=== PATIENT | female | born 1985 | race Caucasian/White ===

== ENCOUNTER 2023-03-06 06:11 | Day surgery (SDC) | payer OTHER ==
[2023-03-02 09:10] LABS: Absolute Lymphocytes (CBC) 2.1 K/uL (0.7-4.9); Hematocrit 41.4 % (36.0-45.0); Lymphocytes % 32.8 % (15.3-44.8); MCV 87.5 fL (80-100); Platelets 334 thou/uL (152-406); RBC Red Blood Cell Count 4.74 M/uL (3.86-4.86)
[2023-03-02 09:29] LABS: Albumin 3.5 g/dL (3.4-5.0); Bilirubin Direct 0.1 mg/dL (0-0.2); Bilirubin Indirect, Calculated 0.5 mg/dL (0.2-0.8); Bilirubin Total 0.6 mg/dL (0.2-1.0); Potassium 3.6 mEq/L (3.5-5.1); Protein, Total 7.3 g/dL (6.4-8.2)
--- NOTE | 2023-03-02 18:05 | EKG ---
Test Date: 2023-03-02 Test Time: 08:08:27 Ticket Printer And Tagger: NUPUR MEASUREMENT RESULTS: Intervals: Rate: 91 VT: 150 QRSD: 86 QT: 354 QTc: 435 [place]: P: 68 VT: 150 QRS: 62 T: 63 INTERPRETIVE STATEMENTS: Normal sinus rhythm Normal ECG No previous ECG available for comparison Electronically Signed On 03-02-23 18:04:41 CDT by Lasha Plascencia
[2023-03-06] MEDS: Ringers Lactate 1,000 ML IV ONE (06:30)
[2023-03-06] MEDS ORDERED: CEFOXITIN SODIUM 1 GM/VIAL ONE (06:42)
[2023-03-06] MEDS ORDERED: HYDROMORPHONE HCL 2 MG/ML inj ONE (07:38)
[2023-03-06] MEDS ORDERED: SUGAMMADEX SODIUM 200 MG/2 ML VIAL IV ONE (07:38)
[2023-03-06] MEDS ORDERED: MIDAZOLAM HCL 2 MG/2 ML INJ ONE (07:40)
[2023-03-06] MEDS ORDERED: FENTANYL CITR 100 MCG/2 ML ONE (07:40)
[2023-03-06] MEDS ORDERED: ROCURONIUM 50 MG/5 ML VIAL IV ONE (07:40)
[2023-03-06] MEDS ORDERED: propofoL 200 MG/20 ML VIAL IV ONE (07:40)
[2023-03-06] MEDS ORDERED: LIDOCAINE 2% MPF 5 ML VIAL ONE (07:40)
[2023-03-06] MEDS ORDERED: ONDANSETRON 4 MG/2 ML VIAL ONE ×2 (08:04→09:28)
[2023-03-06] MEDS ORDERED: dexAMETHasone 4 MG/ML VIAL ONE (08:04)
[2023-03-06] MEDS ORDERED: GLYCOPYRROLATE 0.2 MG/ML SYR ONE ×3 (08:18→11:37)
[2023-03-06] MEDS ORDERED: EPHEDRINE SULF 50 MG/ML VIAL ONE ×2 (08:25→11:42)
--- NOTE | 2023-03-06 08:46 | P.OP ---
Date of Service: 03/06/23 Preop diagnosis: Chronic cholecystitis and cholelithiasis Postop diagnosis: Same Procedure performed: Laparoscopic cholecystectomy Surgeon: Joel Covarrubias MD Splicing Machine Operator: Mya ORO Estimated blood loss: Minimal Specimen: Gallbladder Findings: As above Anesthesia: General Complications: None Drains: None Fluids and blood products: Nonapplicable Disposition: Recovery room Operative note: Patient brought to the OR and placed in supine position. General anesthesia begun. Patient prepped and draped in the usual sterile fashion. Marcaine 0.5% infiltrated locally. 15 blade used to make a 1 cm supraumbilical midline incision. Subcutaneous tissue divided. Bleeding controlled cautery. Fascia identified and divided. #1 Vicryl stay suture placed. Peritoneal cavity entered with sharp and blunt dissection. 12 mm trocar placed into the peritoneal cavity under direct vision. Pneumoperitoneum established. Then under direct visualization three 5 mm trocars placed into the peritoneal cavity. 1 trocar placed in the epigastric region just to the right of midline. 2 trocars placed in the right subcostal region. Laparoscopy revealed chronic inflammation of the gallbladder. Fundus of the gallbladder retracted superiorly. Infundibulum identified and retracted inferolaterally. Cystic duct and cystic artery clearly identified with blunt dissection. Clips placed and both structures divided. Cautery used to remove the gallbladder from the liver bed. Bleeding of the liver bed controlled with cautery. Gallbladder retrieved through the umbilicus via Endo Catch bag. Right upper quadrant irrigated. Effluent clear and no evidence of bleeding or bile leakage appreciated. Subsequently all trocars removed under direct vision. Stay sutures tied to each other to reapproximate the fascial defect. Subcutaneous wounds irrigated and bleeding controlled with cautery. 3-0 chromic used to approximate subcutaneous tissue and close skin. Sterile dressing applied. Patient awakened and taken to recovery room in good general condition. CC:
[2023-03-06] MEDS ORDERED: HYDROCODONE/APAP 7.5/325 MG TAB PO PRN (08:47)
[2023-03-06] MEDS ORDERED: KETOROLAC 30 MG/ML INJ ONE (08:50)
[2023-03-06] MEDS ORDERED: Mastisol Adhesive Liq ONE (08:51)
[2023-03-06 08:56] LABS: Urine Specific Gravity/Preg 1.025 (1.005-1.030)
[2023-03-06] MEDS ORDERED: PROMETHAZINE INJ 25 MG/ML AMP ONE (09:35)
[2023-03-06 09:55] VITALS: BP 120/80; TEMP 97; O2SAT 97
[2023-03-06] MEDS ORDERED: HYDROCODONE/APAP 7.5/325 MG TAB ONE (10:02)
[2023-03-06] MEDS ORDERED: CEFAZOLIN SODIUM 1 GM/VIAL ONE (11:57)
== END 2023-03-06 11:06 | disposition home or self-care (01) ==
LOC: OR 06:11
PROVIDERS: ATTEND Surgery
PROC: 0FT44ZZ Resection of Gallbladder, Percutaneous Endoscopic Approach (ICD-10-PCS; principal; 2023-03-06 07:30)
DX: K81.1 Chronic cholecystitis (principal); K80.18 Calculus of gallbladder with other cholecystitis without obstruction; K80.10 Calculus of gallbladder with chronic cholecystitis without obstruction; E66.9 Obesity, unspecified; Z68.41 Body mass index [BMI] 40.0-44.9, adult
CPT/HCPCS: 93005; 85025; 80048; 36415; 81025; 80076; 88304; 47562; J2550; J2704; J1100; J2001; J2250; J1170; J3010; J0694; J2405 ×2; J7120; J0690